=== PATIENT | male | born 1965 | race Caucasian/White ===

== ENCOUNTER 2024-10-28 08:00 | Outpatient (CLI) | payer OTHER | END 2024-10-28 13:56 | disposition home or self-care (01) | LOC: CSHMRI 08:00 | PROVIDERS: ATTEND Orthopaedic Surgery | DX: M23.91 Unspecified internal derangement of right knee (principal); M25.461 Effusion, right knee; M85.861 Other specified disorders of bone density and structure, right lower leg; R93.7 Abnormal findings on diagnostic imaging of other parts of musculoskeletal system ==